=== PATIENT | female | born 1965 | race Caucasian/White ===

== ENCOUNTER → 2016-09-22 | Outpatient (CLI) | payer OTHER ==
[~2016-09-22] MED LIST: ALBUTEROL0.09 MG/A2 INH; COUMADIN10 M1 PO; COUMADIN7.5 M1 PO; FOLIC ACID1 MG PO; HYDREA500 MG PO; JAKAFI PO; LEVAQUIN750 MG PO; LEVOFLOXACIN500 MG PO; NEXIUM40 MG PO; PRED FORTE 1 ML1 ML OP; PREDNISONE10 MG PO; SYNTHROID0.025 MG PO; VICODIN ES 7501 TAB PO; ZOLOFT50 MG PO; [UNRECOGNIZED DRUG - REMARK]
[2016-09-22 11:44] LABS: HEMATOCRIT 23.4 % (37.0-47.0); HEMOGLOBIN 7.7 g/dl (12.0-16.0); MEAN CELL VOLUME 106.8 fl (81.0-99.0); MEAN CORPUSCULAR HGB 35.2 pg (27.0-31.0); MEAN CORPUSCULAR HGB CONC 32.9 g/dl (33.0-37.0); MEAN PLATELET VOLUME 11.2 fl (9.6-12.3); NUCLEATED RED BLOOD CELL 1.6 10*3/uL (0.0-0.0); PLATELET COUNT AUTOMATED 335 10*3/uL (130-400); RED BLOOD COUNT 2.19 10*6/uL (4.10-5.10); RED CELL DISTRI WIDTH 22.5 % (0-14.5); WHITE BLOOD COUNT 6.6 10*3/uL (4.8-10.8)
[2016-09-22 12:06] LABS: LYMPHOCYTE # 0.4 10*3/uL (1.3-4.4); MONOCYTE # 0.6 10*3/uL (0.1-1.0); MYELOCYTES 3 % (0-0); NEUTROPHIL # 5.3 10*3/uL (2.3-7.9); NEUTROPHILS 80 % (47-73); TOTAL CELLS COUNTED 100 #CELLS
[2016-09-22 12:07] LABS: ACANTHOCYTES FEW; BLASTS 2 % (0-0); SCHISTOCYTES FEW; TARGET CELLS FEW
[2016-09-22 12:08] LABS: POLYCHROMASIA SLIGHT
[2016-09-22 12:09] LABS: PLATELET SUFFICIENCY NORMAL (NORMAL)
[2016-09-22 12:11] LABS: ALBUMIN 3.7 gm/dl (3.1-4.5); BUN 13 mg/dl (7-24); CARBON DIOXIDE 29 mmol/L (21-32); CHLORIDE 110 mmol/L (98-107); GLUCOSE 95 mg/dL (65-99); POTASSIUM 4.3 mmol/L (3.5-5.1); SODIUM 143 mmol/L (136-145)
[2016-09-22 12:24] LABS: ALKALINE PHOSPHATASE 112 U/L (45-117); BILIRUBIN, TOTAL 0.2 mg/dl (0.2-1.0); SGOT/AST 24 IU/L (3-35); SGPT/ALT 29 U/L (12-78); TOTAL PROTEIN 6.9 gm/dL (6.4-8.2)
[2016-09-22 12:37] LABS: EST GLOM FILT AFRICAN AMERICAN > 60 ml/min
== END | disposition home or self-care (01) ==
LOC: LAB 11:17
PROVIDERS: Internal Medicine
DX: F33.9 Major depressive disorder, recurrent, unspecified (principal); M54.16 Radiculopathy, lumbar region; D75.81 Myelofibrosis; G45.9 Transient cerebral ischemic attack, unspecified; K20.0 Eosinophilic esophagitis; E03.9 Hypothyroidism, unspecified; D47.1 Chronic myeloproliferative disease; M54.5 Low back pain; D64.9 Anemia, unspecified

== ENCOUNTER → 2016-10-22 | Outpatient (CLI) | payer OTHER ==
[2016-10-22 09:06] LABS: HEMATOCRIT 23.8 % (37.0-47.0); HEMOGLOBIN 7.6 g/dl (12.0-16.0); MEAN CELL VOLUME 111.2 fl (81.0-99.0); MEAN CORPUSCULAR HGB 35.5 pg (27.0-31.0); MEAN CORPUSCULAR HGB CONC 31.9 g/dl (33.0-37.0); MEAN PLATELET VOLUME 11.3 fl (9.6-12.3); NUCLEATED RED BLOOD CELL 1.5 10*3/uL (0.0-0.0); NUCLEATED RED BLOOD CELL 24.5 % (0.0-0.0); PLATELET COUNT AUTOMATED 371 10*3/uL (130-400); RED BLOOD COUNT 2.14 10*6/uL (4.10-5.10); RED CELL DISTRI WIDTH 21.8 % (0-14.5); WHITE BLOOD COUNT 6.1 10*3/uL (4.8-10.8)
[2016-10-22 09:36] LABS: ALBUMIN 3.7 gm/dl (3.1-4.5); ALKALINE PHOSPHATASE 114 U/L (45-117); BILIRUBIN, TOTAL 0.2 mg/dl (0.2-1.0); BUN 14 mg/dl (7-24); CARBON DIOXIDE 30 mmol/L (21-32); CHLORIDE 109 mmol/L (98-107); EST GLOM FILT AFRICAN AMERICAN > 60 ml/min; GLUCOSE 90 mg/dL (65-99); POTASSIUM 4.3 mmol/L (3.5-5.1); SGOT/AST 25 IU/L (3-35); SGPT/ALT 30 U/L (12-78); SODIUM 143 mmol/L (136-145)
[2016-10-22 09:43] LABS: LYMPHOCYTE # 0.4 10*3/uL (1.3-4.4); METAMYELOCYTES 1 % (0-0); MONOCYTE # 0.5 10*3/uL (0.1-1.0); NEUTROPHIL # 4.6 10*3/uL (2.3-7.9); NEUTROPHILS 75 % (47-73); TOTAL CELLS COUNTED 100 #CELLS
[2016-10-22 09:46] LABS: BLASTS 8 % (0-0)
[2016-10-22 09:47] LABS: HOWELL-JOLLY BODIES FEW; OVALOCYTES MODERATE; PLATELET SUFFICIENCY NORMAL (NORMAL); SCHISTOCYTES MODERATE
== END | disposition home or self-care (01) ==
LOC: LAB 08:38
PROVIDERS: Internal Medicine
DX: F33.9 Major depressive disorder, recurrent, unspecified (principal); G45.9 Transient cerebral ischemic attack, unspecified; K20.0 Eosinophilic esophagitis; E03.9 Hypothyroidism, unspecified; D47.1 Chronic myeloproliferative disease; D75.81 Myelofibrosis; M54.5 Low back pain; D64.9 Anemia, unspecified; M54.16 Radiculopathy, lumbar region

== ENCOUNTER → 2017-01-04 | Outpatient (CLI) | payer OTHER ==
[~2017-01-04] MED LIST changes: +ZOLOFT100 MG PO
[2017-01-04 14:00] LABS: HEMATOCRIT 25.4 % (37.0-47.0); HEMOGLOBIN 8.5 g/dl (12.0-16.0); MEAN CELL VOLUME 101.2 fl (81.0-99.0); MEAN CORPUSCULAR HGB 33.9 pg (27.0-31.0); MEAN CORPUSCULAR HGB CONC 33.5 g/dl (33.0-37.0); NUCLEATED RED BLOOD CELL 0.8 10*3/uL (0.0-0.0); NUCLEATED RED BLOOD CELL 16.2 % (0.0-0.0); PLATELET COUNT AUTOMATED 235 10*3/uL (130-400); RED BLOOD COUNT 2.51 10*6/uL (4.10-5.10); RED CELL DISTRI WIDTH 22.5 % (0-14.5); WHITE BLOOD COUNT 4.7 10*3/uL (4.8-10.8)
[2017-01-04 14:33] LABS: METAMYELOCYTES 1 % (0-0); PLATELET SUFFICIENCY NORMAL (NORMAL); POLYCHROMASIA SLIGHT; TOTAL CELLS COUNTED 100 #CELLS
[2017-01-04 14:35] LABS: OVALOCYTES FEW
[2017-01-04 14:36] LABS: SCHISTOCYTES FEW
[2017-01-04 14:44] LABS: LYMPHOCYTE # 0.3 10*3/uL (1.3-4.4); MONOCYTE # 1.1 10*3/uL (0.1-1.0); NEUTROPHIL # 3.3 10*3/uL (2.3-7.9); NEUTROPHILS 70 % (47-73)
[2017-01-04 17:14] LABS: ALBUMIN 4.1 gm/dl (3.1-4.5); ALKALINE PHOSPHATASE 106 U/L (45-117); BILIRUBIN, TOTAL 0.3 mg/dl (0.2-1.0); BUN 13 mg/dl (7-24); CARBON DIOXIDE 28 mmol/L (21-32); CHLORIDE 107 mmol/L (98-107); EST GLOM FILT AFRICAN AMERICAN > 60 ml/min; GLUCOSE 95 mg/dL (65-99); POTASSIUM 4.4 mmol/L (3.5-5.1); SGOT/AST 30 IU/L (3-35); SGPT/ALT 38 U/L (12-78); SODIUM 141 mmol/L (136-145); TOTAL PROTEIN 7.2 gm/dL (6.4-8.2)
== END | disposition home or self-care (01) ==
LOC: LAB 13:35
PROVIDERS: Internal Medicine
DX: M54.16 Radiculopathy, lumbar region (principal); G45.9 Transient cerebral ischemic attack, unspecified; K20.0 Eosinophilic esophagitis; E03.9 Hypothyroidism, unspecified; D75.81 Myelofibrosis; D64.9 Anemia, unspecified; F33.9 Major depressive disorder, recurrent, unspecified

== ENCOUNTER → 2017-01-11 | Outpatient (CLI) | payer OTHER | END | disposition home or self-care (01) | LOC: NM 06:55 | DX: K30 Functional dyspepsia (principal); K20.0 Eosinophilic esophagitis; D64.9 Anemia, unspecified; G45.9 Transient cerebral ischemic attack, unspecified; D75.81 Myelofibrosis ==

== ENCOUNTER → 2017-11-18 | Outpatient (CLI) | payer OTHER ==
[2017-11-18 14:08] LABS: INTERNATIONAL NORM RATIO 1.6 (2.0-3.5)
== END | disposition home or self-care (01) ==
LOC: LAB 12:56
PROVIDERS: Internal Medicine Hematology & Oncology
DX: I82.90 Acute embolism and thrombosis of unspecified vein (principal)

== ENCOUNTER 2018-01-12 13:23 | Emergency (ER) | payer OTHER ==
[~2018-01-12] VITALS: Ht 154.9 cm; Wt 77.1 kg
[2018-01-12 13:25] VITALS: BP 155/72
== END 2018-01-12 15:04 | disposition home or self-care (01) ==
LOC: ED 13:23
DX: R04.0 Epistaxis (principal); D68.32 Hemorrhagic disorder due to extrinsic circulating anticoagulants; Z88.8 Allergy status to other drugs, medicaments and biological substances; Z79.01 Long term (current) use of anticoagulants; Z79.899 Other long term (current) drug therapy; Z90.49 Acquired absence of other specified parts of digestive tract

== ENCOUNTER 2023-08-27 20:16 | Emergency (ER) | payer OTHER ==
[~2023-08-27] VITALS: Ht 165.1 cm; Wt 77.1 kg
[2023-08-27] MEDS ORDERED: ACETAMINOPHEN 325 MG TAB PO ONE (20:20)
[2023-08-27 21:05] VITALS: BP 115/74
== END 2023-08-27 21:20 | disposition home or self-care (01) ==
LOC: ED 20:16
DX: S09.8XXA Other specified injuries of head, initial encounter (principal); E04.1 Nontoxic single thyroid nodule; D64.9 Anemia, unspecified; F32.A Depression, unspecified; Z88.8 Allergy status to other drugs, medicaments and biological substances; Z88.6 Allergy status to analgesic agent; Z98.890 Other specified postprocedural states; W01.198A Fall on same level from slipping, tripping and stumbling with subsequent striking against other object, initial encounter; Y93.89 Activity, other specified; Y92.009 Unspecified place in unspecified non-institutional (private) residence as the place of occurrence of the external cause; Y99.8 Other external cause status